=== PATIENT | female | born 2000 ===

== ENCOUNTER → 2023-11-14 15:20 | Outpatient (CLI) | payer OTHER, SELFPAY ==
--- NOTE | 2023-11-14 15:25 | DI.NM.S_ITS ---
PROCEDURE: NM EXERCISE TREADMILL NON NUC COMPARISON: None INDICATIONS: Chest pain, unspecified FINDINGS: Rest ECG sinus rhythm. Alf protocol 10:06, maximum heart rate 184 bpm (92% peak predicted), maximum blood pressure 180/80, 10.9 METS, EULA +6%. Exercise ECG sinus tachycardia, no ST segment changes or arrhythmia. The patient complained of 4 out of 10 chest discomfort at peak exercise. IMPRESSION: Low risk study. No evidence of exercise-induced ischemia or arrhythmia. Normal hemodynamic response. Reduced exercise capacity. Dictated by: Alexandra Nolan D.O. on 11/14/2023 at 16:12 Approved by: Alexandra Nolan D.O. on 11/14/2023 at 16:14
== END ==
PROVIDERS: Referring Provider Internal Medicine; Visit Provider Internal Medicine
DX: R07.9 Chest pain, unspecified (principal)
CPT/HCPCS: 93017

== ENCOUNTER → 2023-11-16 14:23 | Outpatient (CLI) | payer OTHER, SELFPAY ==
--- NOTE | 2023-11-16 14:25 | DI.US.S_ITS ---
PROCEDURE: US PELVIC COMPLETE INDICATIONS: IUD CHECK TECHNIQUE: Real-time scanning was performed of the pelvic organs, with image documentation. Additional endovaginal scanning was necessary due to incomplete visualization of the adnexal and endometrial structures by transabdominal scanning. COMPARISON: None. FINDINGS: Uterus: Uterus is anteverted and normal in size at 7.2 x 4.4 x 2.7 cm. The myometrium is homogeneous. The endometrium measures 2 mm combined thickness. Intrauterine device in appropriate position. Ovaries: The right ovary measures 4.2 x 2.7 x 2.3 cm, with a calculated ovarian volume of 13.6 cc. The left ovary measures 3.3 x 2.6 x 2.4 cm, with a calculated ovarian volume of 10.7 cc. The ovaries have a normal sonographic appearance. Less than 12 follicles can be seen in each ovary. No adnexal masses are seen. Other: No pathologic free abdominal or pelvic fluid. IMPRESSION: Intrauterine device appears in appropriate position. Normal appearance of the uterus and ovaries. We strive to produce accurate, complete, and clear reports of imaging services. To assist us in improving patient care, this report was composed using standard report templates and voice recognition software. Therefore, it may contain abnormal punctuation, insertions and/or omissions. Occasional wrong-word or sound-alike substitutions may occur. Though we review the report and make efforts to correct it, we do recommend that the report be read carefully in proper context to recognize any text inaccuracies. Dictated by: Milton Nichole M.D. on 11/16/2023 at 16:28 Approved by: Milton Nichole M.D. on 11/16/2023 at 16:29
== END ==
PROVIDERS: Referring Provider Obstetrics & Gynecology; Visit Provider Obstetrics & Gynecology
DX: Z30.431 Encounter for routine checking of intrauterine contraceptive device (principal)
CPT/HCPCS: 76830; 76856

== ENCOUNTER → 2023-12-26 16:21 | Outpatient (CLI) | payer OTHER, SELFPAY ==
--- NOTE | 2023-12-26 16:23 | DI.ECHO.S_ITS ---
[facility] : : [address] : [facility] : : [place], : : [place] [address] : : Phone: [phone] Echocardiogram Report + + :Name: GARY AMAYA Study Date: 12/26/2023 Height: 63 in : :[facility] ReadingLocation: Weight: 193 lb : : Gender: Female BSA: 1.9 m2 : :: 2000 Age: 23 yrs BP: 124/66 mmHg: :Reason For Study: CHEST PAIN : :Ordering Physician: JAYESH WALKER Performed By: Mustapha Wadsworth : :Referring: JAYESH WALKER : + + Interpretation Summary 1. The left ventricular contractility is normal. Estimated ejection fraction is greater than 55% with no segmental wall motion abnormalities. No LVH. Unable to comment on diastolic function. 2. The right ventricular contractility is normal in limited views. 3. All cardiac chambers appears to be grossly normal. 4. No significant valvular abnormalities noted. 5. No obvious intracardiac shunts. 6. No obvious intracardiac masses nor thrombi. 7. No hemodynamically significant pericardial effusion. 8. No echocardiographic evidence of elevated right-sided filling pressures. Conclusion: Normal biventricular systolic function with no significant structural abnormalities. Procedure: A two-dimensional transthoracic echocardiogram with color flow and Doppler was performed. The study quality was technically adequate. There is no prior echocardiogram noted for this patient. The patient was in sinus rhythm with heart rates between 52-59 bpm during the exam. Left Ventricle: The left ventricle is normal in size and wall thickness. The ejection fraction is estimated to be 65-70%. Right Ventricle: The right ventricle is not well visualized. The right ventricular systolic function is normal. Atria: The left atrial size is normal. Right atrial size is normal. The interatrial septum grossly appears intact with no obvious evidence for an atrial septal defect. Mitral Valve: The mitral valve is normal. There is no mitral valve stenosis. There is no mitral regurgitation noted. Aortic Valve: The aortic valve is trileaflet. There is no aortic valve stenosis. No aortic regurgitation is present. Tricuspid Valve: The tricuspid valve is not well visualized, but is grossly normal. The tricuspid valve is not well visualized. There is no tricuspid stenosis. No tricuspid regurgitation. Pulmonic Valve: The pulmonic valve is not well visualized. There is no pulmonic valvular stenosis. There is trace pulmonic regurgitation. Great Vessels: The aortic root is normal size. The dimensions of the ascending aorta are normal. The IVC is of normal diameter and collapses greater than 50% with a sniff. This suggests a low right atrial pressure of 3 mm Hg. Pericardium/ Pleura There is no pericardial effusion. There is no pleural effusion. MMode/2D Measurements & Calculations LVIDd: 4.9 cm LVOT diam: 1.9 cm LVIDs: 3.1 cm Ao root diam: 2.6 cm IVSd: 0.98 cm asc Aorta Diam: 2.5 cm LVPWd: 0.87 cm Ao Arch Diam (Prox Trans): 1.8 cm LV donald. diameter/BSA (cm/m^2): 2.6 LV sys. diameter/BSA (cm/m^2): 1.6 FS: 36.8 % LA A2 area: 11.3 cm2 RA long axis: 4.2 cm LA A4 area: 11.9 cm2 RA area: 11.7 cm2 LA length (vol): 4.5 cm RA vol: 27.8 ml LA vol: 25.5 ml RA : 14.6 ml/m2 LA vol index: 13.4 ml/m2 TAPSE: 3.1 cm IVC diam: 1.8 cm Doppler Measurements & Calculations Ao V2 max: 150.7 cm/sec LVOT Max Manuel: 121.6 cm/sec Ao V2 mean: 98.8 cm/sec LV V1 max P.9 mmHg Ao V2 VTI: 33.8 cm LV V1 VTI: 26.8 cm Ao max P.1 mmHg Ao mean P.5 mmHg EMILY(I,D): 2.2 cm2 MV E max manuel: 80.7 cm/sec EMILY(V,D): 2.3 cm2 MV A max manuel: 38.3 cm/sec EMILY indexed to BSA (cm^2/m^2): 1.2 MV E/A: 2.1 sev ratio: 0.79 Med Peak E' Manuel: 17.5 cm/sec E/E' med: 4.6 Lat Peak E' Manuel: 17.0 cm/sec E/E' lat: 4.7 E/e' average: 4.7 MV dec time: 0.22 sec PA V2 max: 104.2 cm/sec PA V2 mean: 71.8 cm/sec PA mean P.3 mmHg PA pr(Accel): 17.3 mmHg SV(LVOT): 75.9 ml Reading Physician:
== END ==
PROVIDERS: Referring Provider Internal Medicine; Visit Provider Internal Medicine
DX: R07.9 Chest pain, unspecified (principal)
CPT/HCPCS: 93306

== ENCOUNTER → 2024-02-23 08:37 | Outpatient (CLI) | payer OTHER, SELFPAY ==
--- NOTE | 2024-02-23 | DI.RAD.S_ITS ---
PROCEDURE: [place] KNEE INJECTION MR/CT LT PROCEDURE: XR JOINT GADOLINIUM CONTRAST INJECTION MAJOR DIAGNOSTIC INDICATIONS: pain TECHNIQUE: The indications, alternatives, benefits, risks, and complications of the procedure were explained to the patient. Written informed consent was obtained and placed in the chart. The patient was placed in an appropriate position on the fluoroscopy table, and a site was chosen for percutaneous access under fluoroscopic guidance. The site was prepped and draped in a sterile fashion. Local anesthetic was administered using a 1% lidocaine solution. A hypodermic or spinal needle was then used to access the symptomatic joint. Intra-articular location of the needle tip was confirmed by injecting a small amount of contrast, followed by gadolinium contrast administration. The needle was then withdrawn, and a bandage applied to the puncture site. 0.2 minutes fluoro time. One x-ray image taken. FINDINGS: Joint injected: Left knee Complications: None. IMPRESSION: Successful fluoroscopically guided administration dilute gadolinium solution into the left knee joint for MR imaging. Dictated by: Leonard Montes M.D. on 02/23/2024 at 13:03 Approved by: Leonard Montes M.D. on 02/23/2024 at 13:06
--- NOTE | 2024-02-23 | DI.MRI.S_ITS ---
PROCEDURE: MR KNEE LT W CON INDICATIONS: Pain in left knee TECHNIQUE: After the administration of 50 mL of dilute intra-articular Gadolinium contrast, sagittal T1 spin echo with fat saturation and PD fast spin echo with fat saturation, coronal T1 spin echo with and without fat saturation, coronal T2 fast spin echo with fat saturation, axial PD fast spin echo with fat saturation through the knee. COMPARISON: [facility], , [place] KNEE INJECTION MR/CT LT, 02/23/2024, 7:52. FINDINGS: Image quality: Excellent. Bones: The bone marrow signal is normal. There is no acute fracture or dislocation. Joints: Gadolinium-based intra-articular contrast is present within the knee joint. There is no significant knee osteoarthritis. Tolbert's cyst: None. Menisci: The medial meniscus is normal. The lateral meniscus is normal. The posterior root attachments are normal. Cruciate ligaments: The anterior cruciate ligament is normal. The posterior cruciate ligament is normal. Collateral ligaments: The medial collateral ligament complex is normal. The lateral collateral ligament complex is normal. Popliteus Muscle/Tendon: The popliteus muscle and tendon are normal. Extensor mechanism: The quadriceps tendon is normal. The patellar tendon is normal. The medial and lateral patellar retinacular attachments are normal. Articular cartilage: There is no significant articular cartilage defect. Other: No other acute findings. IMPRESSION: No acute MRI abnormality of the left knee. Dictated by: Shyam Bolton M.D. on 02/23/2024 at 21:57 Approved by: Shyam Bolton M.D. on 02/23/2024 at 22:02
[2024-02-23] MEDS: SODIUM CHLORIDE 0.9 % 20 ML VIAL IV ×2 (09:21)
[2024-02-23] MEDS: LIDOCAINE 1% 20 ML INJ (09:21)
== END ==
PROVIDERS: Referring Provider Student in an Organized Health Care Education/Training Program; Visit Provider Student in an Organized Health Care Education/Training Program
DX: M25.562 Pain in left knee (principal)
CPT/HCPCS: 27369; 73580; 73722; A9579; Q9967